=== PATIENT | male | born 1995 | race Caucasian/White ===

== ENCOUNTER 2018-05-24 09:04 | Emergency (ER) | payer OTHER ==
--- NOTE | 2018-05-24 09:44 | UC ---
Throat Pain/Nasal Ascencion HPI - HPI Summary HPI Summary: 22 yo male presents with sore throat since last night. He tells me that for the last month he has been battling an on/off again "cold" with sinus pain/pressure/ congestion, dry cough, and sore throat. Over the last week has been feeling well , but last night he felt feverish and his throat began to hurt worse than previous. This morning he noticed his throat was very red. He is able to eat and drink without issue. Denies SOB, chest pain, abdominal pain, n/v, rash. - History of Current Complaint Chief Complaint: UCGeneralIllness Stated Complaint: SORE THROAT Time Seen by Provider: 05/24/18 09:44 Hx Obtained From: Patient Onset/Duration: Gradual Onset Severity: Severe Pain Intensity: 7 Pain Scale Used: 0-10 Numeric - Allergies/Home Medications Allergies/Adverse Reactions: Allergies Allergy/AdvReac Type Severity Reaction Status Date / Time No Known Allergies Allergy Verified 05/24/18 09:29 PMH/Surg Hx/FS Hx/Imm Hx - Additional Past Medical History Additional PMH: None - Surgical History Surgical History: None - Family History Known Family History: Positive: None - Social History Occupation: Student Lives: With Family Alcohol Use: None Substance Use Type: None Smoking Status (MU): Never Smoked Tobacco Review of Systems All Other Systems Reviewed And Are Negative: Yes Constitutional: Positive: Negative Skin: Positive: Negative Eyes: Positive: Negative ENT: Positive: Sore Throat, Nasal Discharge, Sinus Congestion, Sinus Pain/ Tenderness Respiratory: Positive: Cough Cardiovascular: Positive: Negative Gastrointestinal: Positive: Negative Neurovascular: Positive: Negative Neurological: Positive: Negative Psychological: Positive: Negative Physical Exam - Summary Physical Exam Summary: GENERAL: NAD. WDWN. No pain distress. SKIN: No rashes, sores, lesions, or open wounds. HEENT: Head: AT/NC Eyes: Conjunctiva clear without inflammation or discharge. Ears: Hearing grossly normal. TMs intact, no bulging, erythema, or edema. Nose: Nasal mucosa erythematous and moist. NTTP maxillary and frontal sinus. Throat: Posterior oropharynx moderate erythema. No exudates. Uvula midline. No hoarse voice or muffled voice. NECK: Supple. Mild TTP tonsillar b/l LAD CHEST: CTAB. No r/r/w. No accessory muscle use. Breathing comfortably and in no distress. CV: RRR. Without m/r/g. Pulses intact. Cap refill <2seconds NEURO: Alert. PSYCH: Age appropriate behavior. Triage Information Reviewed: Yes Vital Signs: Initial Vital Signs Temp 97.8 F 05/24/18 09:26 Pulse 78 05/24/18 09:26 Resp 17 05/24/18 09:26 BP 159/108 05/24/18 09:26 Pulse Ox 100 05/24/18 09:26 Vital Signs Reviewed: Yes Throat Pain/Nasal Course/Dx - Course Course Of Treatment: Suspicion for strep and given length of other symptoms pt elected to defer testing and be treated with anbx today. - Differential Dx/Diagnosis Provider Diagnosis: Pharyngitis Discharge - Sign-Out/Discharge Documenting (check all that apply): Patient Departure All imaging exams completed and their final reports reviewed: No Studies - Discharge Plan Condition: Stable Disposition: HOME Prescriptions: Amoxicillin PO (*) [Amoxicillin 875 MG (*)] 875 mg PO BID #14 tab Patient Education Materials: Pharyngitis (ED) Referrals: Mao Tavarez MD [Primary Care Provider] - Additional Instructions: If you develop a fever, shortness of breath, chest pain, new or worsening symptoms - please call your PCP or go to the ED. Your blood pressure was high at todays visit. Please see your primary provider within 4 weeks for recheck and re-evaluation. - Billing Disposition and Condition Condition: STABLE Disposition: Home
[2018-05-24 09:54] VITALS: BP 130/100
== END 2018-05-24 09:57 | disposition home or self-care (01) ==
LOC: UCEAST 09:04
DX: J02.9 Acute pharyngitis, unspecified (principal)
CPT/HCPCS: 99212; G0463